=== PATIENT | male | born 1955 | race Caucasian/White ===

== ENCOUNTER 2018-06-11 15:58 | Day surgery (SDC) | payer OTHER ==
[~2018-06-11 15:58] MED LIST: Bupivacaine 0.75% 10 ML AMP ONE; CEFAZOLIN 1 GM VIAL ONE; Cyclopentolate 1% Opth Drop 2 ML BOT FS SCH; Fluorouracil 100 MG, Enoxaparin Sodium 25 MG, EPINEPHrine 0.3 MG in Ophthalmic Irrigati... FS SCH; Lidocaine 1% PF 5 ML VIAL ONE; Lidocaine 2% MPF 10 ML AMP (For Epidural Use) ONE; Maxitrol 0.1% Opth Oint 3.5 GM TUBE ONE; PROPOFOL 200 MG/20 ML VIAL ONE; Phenylephrine 2.5% Ophth Soln 5 ML BOT FS SCH; Triamcinolone 40 MG/ML VIAL ONE
[2018-06-11] MEDS ORDERED: Cyclopentolate 1% Opth Drop 2 ML BOT ONE (16:24)
[2018-06-11] MEDS ORDERED: Phenylephrine 2.5% Ophth Soln 5 ML BOT ONE (16:24)
[2018-06-11] MEDS ORDERED: Lidocaine 2% PF Inj 2 ML VIAL ONE (18:05)
[2018-06-11] MEDS ORDERED: Midazolam HCl 2 mg/2 ml Vial ONE (18:30)
[2018-06-11] MEDS ORDERED: Fentanyl 100 MCG/2 ML VIAL ONE (18:30)
--- NOTE | 2018-06-12 13:38 | OP ---
DATE OF SURGERY: 06/11/2018 PREOPERATIVE DIAGNOSIS: Rhegmatogenous retinal detachment, right eye. POSTOPERATIVE DIAGNOSIS: Rhegmatogenous retinal detachment, right eye. PROCEDURE: Pars plana vitrectomy; laser retinal detachment repair, right eye. SURGEON: Teddy Gutierrez MD ANESTHESIA: Local with monitored anesthesia care. COMPLICATIONS: None. PROCEDURE IN DETAIL: The patient was identified in the preoperative holding area. Appropriate conse nt for the planned surgical procedure on the right eye had been obtained. The patient was transporte d to the operative suite. Appropriate cardiopulmonary monitoring was established. Local anesthesia was obtained using retrobulbar block. The patient was prepped and draped in the usual sterile manner for ophthalmic surgery on the right eye. Lid speculum was placed in the right eye. 25-gauge trocar s were placed in conjunctiva and sclera supratemporally, inferotemporally, and supranasally. Infusio n line was placed inferotemporally. Light pipe and vitreous cutter were inserted into the eye. Core vitrectomy was performed. Attention was turned to the superior breaks, trimmed free of adherent vit reous. Posterior drain retinotomy was created, complete air fluid exchange being allowed for fluid t o drain posteriorly. A 360 laser was placed using endolaser delivery device. Subretinal fluid was d rained. A 28% sulfur hexafluoride gas was infused into the eye. Trocars were removed. Eye was note d to retain pressure well. Retrobulbar Kenalog and subconjunctival Ancef were placed. Atropine and antibiotic ointment placed, and the eye was patched and shielded. Patient was taken to the postopera tive recovery unit in good condition having suffered no immediate perioperative complications. DISCHARGE INSTRUCTIONS: The patient was instructed to keep patch, position left side down. Follow u p in the morning with Dr. Gutierrez.
== END 2018-06-11 20:39 | disposition home or self-care (01) ==
LOC: SDC 15:58
PROVIDERS: ATTEND Ophthalmology Retina Specialist
PROC: 08B43ZZ Excision of Right Vitreous, Percutaneous Approach (ICD-10-PCS; principal; 2018-06-11)
DX: H33.021 Retinal detachment with multiple breaks, right eye (principal)
CPT/HCPCS: 67025; J0171; J1650; J2250; J3010; J9190

== ENCOUNTER → 2019-07-10 | Day surgery (SDC) | payer BC ==
[~2019-07-10] MED LIST changes: -Bupivacaine 0.75% 10 ML AMP ONE; +Bupivacaine PF 0.75% SDV 10 ML ONE; +Cyclopentolate 1% Opth Drop 2 ML BOT ONE; +Fentanyl 100 MCG/2 ML VIAL ONE; -Fluorouracil 100 MG, Enoxaparin Sodium 25 MG, EPINEPHrine 0.3 MG in Ophthalmic Irrigati... FS SCH; +Fluorouracil 100 MG, Enoxaparin Sodium 25 MG, EPINEPHrine 0.3 MG in Ophthalmic Irrigati... IRR SCH; -Lidocaine 2% MPF 10 ML AMP (For Epidural Use) ONE; +Lidocaine 4% PF 5 ML AMP ONE; -Maxitrol 0.1% Opth Oint 3.5 GM TUBE ONE; +Midazolam HCl 2 mg/2 ml Vial ONE; +Phenylephrine 2.5% Ophth Soln 5 ML BOT ONE; +Tobramycin/Dexamethasone Ophth Oint 3.5 GM TUBE ONE
--- NOTE | 2019-07-11 01:18 | OP ---
DATE OF PROCEDURE: 07/10/2019 PREOPERATIVE DIAGNOSIS: Rhegmatogenous retinal detachment, left eye. POSTOPERATIVE DIAGNOSIS: Rhegmatogenous retinal detachment, left eye. PROCEDURES PERFORMED: Pars plana vitrectomy and retinal detachment repair, left eye. ANESTHESIA: Local with monitored anesthesia care. DESCRIPTION OF PROCEDURE: The patient was identified in the preoperative holding area. Appropriate informed consent for the planned surgical procedure on the left eye had been obtained. The patient was transported to the operative suite. Appropriate cardiopulmonary monitoring was established. Local anesthesia obtained using retrobulbar modified Van Lint lid block using 50:50 mixture of 4% lidocaine and 0.75% bupivacaine. The patient was prepped and draped in usual sterile manner for ophthalmic surgery on the left eye. Lid speculum was placed in the left eye, 25-gauge trocar was placed in the conjunctiva and sclera supratemporally, inferotemporally, supranasally. Infusion line was placed inferotemporally. Light pipe vitreous cutter inserted into the eye. Core vitrectomy was performed. Vitreous base was trimmed back 360 degrees using wide field viewing system. Posterior drained retinotomy was created. Complete air-fluid exchange was performed with 10 minutes being left for fluid to drain posteriorly. 360 laser was placed using Endolaser delivery device. 28% sulfur hexafluoride gas was infused into the eye. Trocars were removed. The eye was noted to retain pressure well. Retrobulbar Kenalog and subconjunctival Ancef were placed. Antibiotic ointment was placed. Eye was patched and shielded. The patient was taken to postoperative recovery unit in good condition having suffered no immediate perioperative complications. The patient was instructed to keep patch and shield on, avoid lifting or bending, and followup appointment with Dr. Gutierrez. Job ID: [id number]
== END ==
LOC: SDC 17:44
PROVIDERS: ATTEND Ophthalmology Retina Specialist
PROC: 08T53ZZ Resection of Left Vitreous, Percutaneous Approach (ICD-10-PCS; principal; 2019-07-10)
DX: H33.002 Unspecified retinal detachment with retinal break, left eye (principal); Z79.899 Other long term (current) drug therapy
CPT/HCPCS: 67025; J0171; J0690; J1650; J2001; J2250; J2704; J3010; J3301; J3490; J9190